=== PATIENT | male | born 1995 | race African-American/Black ===

== ENCOUNTER 2020-01-12 21:54 | Emergency (ER) | payer OTHER ==
[~2020-01-12] VITALS: Ht 175.3 cm; Wt 64.0 kg
[2020-01-12] MEDS ORDERED: TETANUS, DIPHTHERIA, PERTUSSIS VAC/PF 0.5ML (>7YR OLD) IM ONE (22:45)
[2020-01-12] MEDS ORDERED: LIDOCAINE HCL/PF 1% 10 MG/ML 5ML VIAL IJ ONE (22:45)
[2020-01-12] MEDS ORDERED: HYDROCODONE/ACETAMINOPHEN 5/325MG TABLET PO ONE (22:45)
[2020-01-12] MEDS ORDERED: BACITRACIN ZINC OINT UDPKT TOP ONE (22:45)
[2020-01-12 22:50] VITALS: BP 147/94
[2020-01-12] MEDS ORDERED: CLINDAMYCIN HCL 150MG CAPSULE PO ONE (23:30)
== END 2020-01-13 01:30 | disposition home or self-care (01) ==
LOC: ER 21:54
DX: S61.411A Laceration without foreign body of right hand, initial encounter (principal); V43.52XA Car driver injured in collision with other type car in traffic accident, initial encounter; Y93.89 Activity, other specified; Y92.488 Other paved roadways as the place of occurrence of the external cause
CPT/HCPCS: 12002; 90471; 90715; 99284; J3490